=== PATIENT | male | born 1980 | race Caucasian/White ===

== ENCOUNTER 2021-02-28 15:09 | Emergency (ER) | payer OTHER ==
[~2021-02-28] VITALS: Ht 182.9 cm; Wt 93.8 kg
[2021-02-28] MEDS ORDERED: LIDOCAINE/EPI/TETRACAINE TOPICAL GEL 3 ML. TP ONE (16:30)
--- NOTE | 2021-02-28 17:27 | ED.ADGEN ---
Past Medical History Past Medical History: Anxiety, Depression, GERD, Hypertension Past Surgical History: Other Additional Past Surgical Histo: L LOWER LEG MULTIPLE Smoking Status: Never Smoker Alcohol Use: None General Adult EDM: Chief Complaint: LACERATION/AVULSION HPI: HPI: Patient is a 40 year old male who presents emergency department with complaints of a laceration to the top of his head. Patient was at work when he hit his he ad on a piece of metal framework. He denies any loss of consciousness, nausea, vomiting, vision changes, neck pain, back pain, or headache. Patient refuses a tetanus shot, he states that for episcopalian reasons he does not take tetanus immunizations. Currently rates his pain 1 out of 10 on the pain scale, he denies any alleviating or exacerbating factors. Review of Systems: Review of Systems: Complete ROS is negative unless otherwise noted in HPI. Current Medications: Current Medications Medications (Trade) Dose Ordered Sig/Meagan Start Time Stop Time Status Last Admin Dose Admin Tetracaine/ Epinephrine/ Lidocaine (Let ([id number]) Gel) 3 ml 1X ONCE 02/28/21 16:30 02/28/21 16:31 DC 02/28/21 16:23 3 ML Allergies: Allergies: Allergies Coded Allergies Type Severity Reaction Last Updated Verified Penicillins Allergy Unknown UNKNOWN 02/28/21 Yes Uncoded Allergies Type Severity Reaction Last Updated Verified BEE VENOM Allergy Unknown UNKNOWN 02/28/21 Physical Exam: PE: See Above Constitutional: Well developed, well nourished, no acute distress, non-toxic appearance. [] HENT: Normocephalic, bilateral external ears normal, nose normal; see skin assessment Eyes: PERRLA, EOMI, conjunctiva normal, no discharge. [] Neck: Normal range of motion, no stridor. [] Cardiovascular:Heart rate regular rhythm Lungs & Thorax: Respirations even and unlabored, no retractions, no respiratory distress Skin: Warm, dry, no erythema, no rash; 1 cm x 1 cm V-shaped laceration to posterior scalp, no visible foreign body, no active bleeding. [] Extremities: No cyanosis, ROM intact, no edema. [] Neurologic: Alert and oriented X 3, no focal deficits noted. [] Psychologic: Affect normal, judgement normal, mood normal. [] Current Patient Data: Vital Signs: Vital Signs Date Time Temp Pulse Resp B/P (MAP) Pulse Ox O2 Delivery O2 Flow Rate FiO2 02/28/21 15:09 98.6 92 17 149/94 (112) 98 Room Air 98.6 EKG: EKG: [] Heart Score: C/O Chest Pain: No Risk Scores: Score 0 - 3: 2.5% MACE over next 6 weeks - Discharge Home Score 4 - 6: 20.3% MACE over next 6 weeks - Admit for Clinical Observation Score 7 - 10: 72.7% MACE over next 6 weeks - Early Invasive Strategies Radiology/Procedures: Radiology/Procedures: Laceration Repair by me: Anesthesia: Topical LET Location: Scalp Tendon/Joint/Nerves: No injury Foreign body: None detected after copious irrigation and exploration with NS and chlorhexidine Technique: 3 surgical tammy Complexity: No subcutaneous sutures/mucosal repair/edge excision Post Closure Length: 1.5 cm x 1.5 cm V-shaped Patient's bleeding was easily controlled in the department and there is no indication of anemia. No evidence of compartment syndrome, neurologic injury, vascular injury, open joint, tendon laceration, or foreign body. Patient is appropriate for outpatient follow up. Course & Med Decision Making: Course & Med Decision Making Pertinent Labs and Imaging studies reviewed. (See chart for details) 40-year-old male presents emergency department for evaluation of a laceration to his scalp. Patient declined tetanus immunization stating episcopalian reasons. Wound repair as documented above. Patient was encouraged to follow-up with his primary care doctor or return to the ER in 5 to 7 days to have the tammy removed. May take Tylenol or ibuprofen as needed for pain. Patient verbalized an understanding of home care, medications, follow-up, and return to ED instructions and was in agreement with the plan of care. Aniyahon Disclaimer: Kena Disclaimer: This electronic medical record was generated, in whole or in part, using a voice recognition dictation system. Departure Departure Impression: Primary Impression: Laceration of scalp without complication Disposition: 01 HOME / SELF CARE / HOMELESS Condition: STABLE Referrals: NO PCP (PCP) Patient Instructions: Staple Wound Closure, [id number] Additional Instructions: Keep the area clean and dry. You may take Tylenol or ibuprofen as needed for p ain. Do not submerge your head under water, take baths, or go swimming with the tammy in place. You may take showers. Follow-up with your primary care doctor, or return to the emergency room in 5-7 days to have the tammy removed, sooner if you develop signs of infection including: redness, warmth, drainage, or a fever. Problem Qualifiers Primary Impression: Laceration of scalp without complication Encounter type: initial encounter Qualified Codes: S01.01XA - Laceration without foreign body of scalp, initial encounter BENITEZ MARTINEZ APRN February 28, 2021 17:27
[2021-02-28 17:42] VITALS: BP 135/87
== END 2021-02-28 17:42 | disposition home or self-care (01) ==
LOC: ER 15:09
DX: S01.01XA Laceration without foreign body of scalp, initial encounter (principal); I10 Essential (primary) hypertension; K21.9 Gastro-esophageal reflux disease without esophagitis; Z88.0 Allergy status to penicillin; Z91.030 Bee allergy status; W22.8XXA Striking against or struck by other objects, initial encounter; Y93.89 Activity, other specified; Y92.69 Other specified industrial and construction area as the place of occurrence of the external cause; Y99.0 Civilian activity done for income or pay
CPT/HCPCS: 12002; 99282